=== PATIENT | female | born 1930 | race Caucasian/White ===

== ENCOUNTER 2016-11-03 00:45 | Emergency (ER) | payer MEDICARE, BC ==
--- NOTE | 2016-11-03 01:59 | EDM.PDOC ---
ED HPI GENERAL MEDICAL PROBLEM - General Chief Complaint: Lower Extremity Injury/Pain Stated Complaint: IN BY AMBULANCE Time Seen by Provider: 11/03/16 01:55 Source of Information: Reports: Patient, Family History Limitations: Reports: No Limitations - History of Present Illness INITIAL COMMENTS - FREE TEXT/NARRATIVE: daughter states found Pt lying on left side on floor, alert coherent. Pt states was carrying a box with one hand and a cane with the other, was planning to go to kitchen that's all she remember. c/o pain in back and her neck too. feels ok as long as she doesn't move. - Related Data Allergies Allergy/AdvReac Type Severity Reaction Status Date / Time Tetanus Vaccines and Toxoid Allergy Other Verified 11/03/16 00:32 [Tetanus Vaccines & Toxoid] Home Meds: Home Meds Venlafaxine HCl [Venlafaxine ER] 150 mg PO DAILY 11/03/16 [History] Social & Family History - Tobacco Use Smoking Status *Q: Never Smoker Second Hand Smoke Exposure: No - Recreational Drug Use Recreational Drug Use: No Review of Systems - Review of Systems Review Of Systems: ROS reveals no pertinent complaints other than HPI. Trauma Exam - Physical Exam Exam: See Below Exam Limited By: No Limitations General Appearance: Reports: Alert, WD/WN, No Apparent Distress Head: Reports: Atraumatic. Denies: Massey's Sign, Raccoon Eyes Eyes: Bilateral Eye: PERRL (pupils ess ER @ 4mm) Ears: Reports: Hearing Grossly Normal Throat/Mouth: Reports: Normal Voice, No Airway Compromise Neck: Reports: Stiff Neck, Tenderness, Tender Lateral Respiratory Exam: Reports: No Respiratory Distress, No Accessory Muscle Use Cardiovascular: Reports: Regular Rate, Rhythm GI/Abdominal: Reports: Soft, Non-Tender Back: Reports: Other (low back) Neurologic: Reports: Alert, Oriented x 3 Skin: Reports: Normal Color, Warm/Dry - Kirsten Coma Score Best Eye Response (Kirsten): (4) Open Spontaneously Best Verbal Response (Kirsten): (5) Oriented Best Motor Response ([place]): (6) Obeys Commands Kirsten Total: 15 Course - Orders/Labs/Meds Orders: Active Orders 24 hr Category Date Time Status EKG Documentation Completion [RC] STAT Care 11/03/16 01:59 Active Cervical Spine wo Cont [CT] Urgent Exams 11/03/16 01:48 Taken Chest Abdomen Pelvis wo Cont [CT] Urgent Exams 11/03/16 01:48 Taken Head wo Cont [CT] Urgent Exams 11/03/16 01:48 Taken Labs: Laboratory Tests 11/03/16 11/03/16 11/03/16 Range/Units 00:50 01:35 01:35 WBC 11.2 H (5.0-10.0) 10^3/uL RBC 3.86 L (4.2-5.4) 10^6/uL Hgb 11.9 L (12.0-16.0) g/dL Hct 35.6 L (37.0-47.0) % MCV 92.2 (80-100) fL MCH 30.8 (27.0-34.0) pg MCHC 33.4 (33.0-35.0) g/dL Plt Count 281 (150-450) 10^3/uL Neut % (Auto) 81.4 H (42.2-75.2) % Lymph % (Auto) 11.5 L (20.5-50.1) % [place] % (Auto) 6.9 (2-8) % Eos % (Auto) 0.1 L (1.0-3.0) % Baso % (Auto) 0.1 (0.0-1.0) % Sodium 140 (135-145) mmol/L Potassium 4.2 (3.6-5.0) mmol/L Chloride 105 (101-111) mmol/L Carbon Dioxide 23.0 (21.0-31.0) mmol/L Anion Gap 16.2 BUN 16 (7-18) mg/dL Creatinine 0.8 (0.6-1.3) mg/dL Est Cr Clr Drug Dosing 41.76 mL/min Estimated GFR (MDRD) > 60 BUN/Creatinine Ratio 20.00 Glucose 173 H (74-105) mg/dL Calcium 9.0 (8.4-10.2) mg/dl Total Bilirubin 0.7 (0.2-1.0) mg/dL AST 23 (10-42) IU/L ALT 14 (10-60) IU/L Alkaline Phosphatase 55 (42-121) IU/L Troponin I 0.02 (0.00-0.02) ng/ml Total Protein 7.0 (6.7-8.2) g/dl Albumin 3.9 (3.2-5.5) g/dl Globulin 3.1 Albumin/Globulin Ratio 1.26 Urine Color Yellow (YELLOW) Urine Appearance Clear (CLEAR) Urine pH 7.0 (5.0-9.0) Ur Specific [place] 1.020 (1.005-1.030) Urine Protein Trace H (NEGATIVE) Urine Glucose (UA) Negative (NEGATIVE) Urine Ketones 40 H (NEGATIVE) Urine Occult Blood Negative (NEGATIVE) Urine Nitrite Negative (NEGATIVE) Urine Bilirubin Negative (NEGATIVE) Urine Urobilinogen 1.0 (0.2-1.0) mg/dL Ur Leukocyte Esterase Negative (NEGATIVE) Urine RBC 0-5 /HPF Urine WBC 0-5 (0-5/HPF) /HPF Ur Epithelial Cells Rare /HPF Urine Bacteria Few (0-FEW/HPF) /HPF Meds: Medications Discontinued Medications Generic Name Dose Route Start Last Admin Trade Name Freq PRN Reason Stop Dose Admin Hydrocodone Bitart/Acetaminophen 1 tab 11/03/16 02:54 11/03/16 02:57 [place] 325-10 Mg PO 11/03/16 02:55 1 tab ONETIME ONE Administration - Re-Assessments/Exams Free Text/Narrative Re-Assessment/Exam: 11/03/16 03:03 re-exam: chatting with family. results discussed with Pt & family. 11/03/16 03:43 s/p norco=better. able to get up to wheel chair with assist. Departure - Departure Time of Disposition: 03:04 Disposition: Home, Self-Care 01 Condition: good Clinical Impression: Lumbar contusion Qualifiers: Encounter type: initial encounter Qualified Code(s): S30.0XXA - Contusion of lower back and pelvis, initial encounter - Discharge Information Instructions: Back Pain, Adult, [id number] Forms: ED Department Discharge Additional Instructions: 1) rest and avoid bending, lifting, straining 2) try ice or heat to sore areas 3) follow up at clinic or recheck if there is any changes or concerns - My Orders Last 24 Hours: My Active Orders 11/03/16 01:48 Cervical Spine wo Cont [CT] Urgent Chest Abdomen Pelvis wo Cont [CT] Urgent Head wo Cont [CT] Urgent 11/03/16 01:59 EKG Documentation Completion [RC] STAT - Assessment/Plan Last 24 Hours: My Active Orders 11/03/16 01:48 Cervical Spine wo Cont [CT] Urgent Chest Abdomen Pelvis wo Cont [CT] Urgent Head wo Cont [CT] Urgent 11/03/16 01:59 EKG Documentation Completion [RC] STAT
[2016-11-03 02:15] LABS: CHLORIDE,CL 105 mmol/L (101-111); SODIUM,NA 140 mmol/L (135-145)
[2016-11-03] MEDS ORDERED: Acetaminophen/HYDROcodone 325-10 MG Tab PO ONE (02:54)
[2016-11-03] MEDS ORDERED: Acetaminophen/HYDROcodone 325-10 MG Tab ONE (04:02)
--- NOTE | 2016-11-07 07:52 | EKG ---
11/03/2016- NADEGE PIZANO - EKG per my reading, shows sinus rhythm with inferior anterior Q-waves. [facility] /[id number]
== END 2016-11-03 04:12 | disposition home or self-care (01) ==
LOC: DL.ED 00:45
DX: S30.0XXA Contusion of lower back and pelvis, initial encounter (principal); X58.XXXA Exposure to other specified factors, initial encounter; Z88.7 Allergy status to serum and vaccine; Z79.899 Other long term (current) drug therapy
CPT/HCPCS: 36415; 70450; 71250; 72125; 74176; 80053; 81001; 84484; 85025; 93005; 93010; 99283; 99284; A9270